=== PATIENT | male | born 2000 | race Caucasian/White ===

== ENCOUNTER 2021-12-25 14:26 | Outpatient (CLI) | payer OTHER, SELFPAY | END 2021-12-25 14:27 | disposition home or self-care (01) | LOC: AMB 12-28 04:45 | PROVIDERS: Visit Provider Family Medicine | DX: S19.9XXA Unspecified injury of neck, initial encounter (principal); W21.81XA Striking against or struck by football helmet, initial encounter; Y93.61 Activity, american tackle football; Y92.321 Football field as the place of occurrence of the external cause | CPT/HCPCS: A0425; A0429 ==

== ENCOUNTER 2021-12-25 14:44 | Emergency (ER) | payer OTHER, SELFPAY ==
[2021-12-25 14:48] VITALS: BP 149/95; PULSE 85; TEMP 35.8; O2SAT 95; BMI 29.7
--- NOTE | 2021-12-25 15:11 | CRLHL7_ITS ---
For Patients: As a result of the Cures Act, medical imaging exams and procedure reports are released immediately into your electronic medical record. You may view this report before your referring provider. If you have questions, please contact your health care provider. INDICATION: Neck pain. TECHNIQUE: CT of the cervical spine without contrast. Coronal and sagittal reformats are included. COMPARISON: None. FINDINGS: No acute fracture or traumatic malalignment of the cervical spine. Craniocervical junction alignment is maintained. No bony spinal canal or neural foraminal stenosis. Imaged intracranial structures, cervical and paraspinous soft tissues are normal in appearance. The visualized pulmonary apices are clear. IMPRESSION: 1. No acute fracture or traumatic malalignment of the cervical spine. Please note that all CT scans at this facility use dose modulation, iterative reconstruction, and/or weight-based dosing when appropriate to reduce radiation dose to as low as reasonably achievable. Dictated by Rafat Tubbs MD @ 12/25/2021 4:04:11 PM (Electronically Signed)
--- NOTE | 2021-12-25 15:11 | CRLHL7_ITS ---
For Patients: As a result of the Century Cures Act, medical imaging exams and procedure reports are released immediately into your electronic medical record. You may view this report before your referring provider. If you have questions, please contact your health care provider. INDICATION: Fall. Neck pain. TECHNIQUE: CT of the head without contrast. Coronal and sagittal reformats are included. COMPARISON: None. FINDINGS: No acute intracranial hemorrhage. No mass effect or midline shift. No hydrocephalus or extra-axial collections. White matter is within normal limits for age. No acute osseous abnormalities. A small mucous retention cyst within the right frontal sinus. Paranasal sinuses are otherwise clear. Mastoid air cells are clear. Normal soft tissues. IMPRESSION: 1. No acute intracranial pathology. Please note that all CT scans at this facility use dose modulation, iterative reconstruction, and/or weight-based dosing when appropriate to reduce radiation dose to as low as reasonably achievable. Dictated by Rafat Tubbs MD @ 12/25/2021 4:00:43 PM (Electronically Signed)
[2021-12-25] MEDS: ACETAMINOPHEN 500 MG TABLET 1000 MG PO (15:17)
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
== END 2021-12-25 16:28 | disposition home or self-care (01) ==
PROVIDERS: Emergency Provider Family Medicine
DX: S16.1XXA Strain of muscle, fascia and tendon at neck level, initial encounter (principal); Y93.61 Activity, american tackle football; Y92.321 Football field as the place of occurrence of the external cause
CPT/HCPCS: 70450; 72125; 99284; A9270